=== PATIENT | male | born 1975 | race Caucasian/White ===

== ENCOUNTER 2017-11-13 08:40 | Outpatient (CLI) | payer BC ==
--- NOTE | 2017-11-13 09:10 | RAD ---
CHEST TWO VIEWS: Comparison: None. History: Chest pain. FINDINGS: Lungs are clear with no large effusion. Cardiomediastinal silhouette and mediastinal contours are wit hin normal limits. IMPRESSION: No acute intrathoracic abnormality. POS: [facility]
== END 2017-11-13 08:41 | disposition home or self-care (01) ==
LOC: RAD-FRANK 08:40
PROVIDERS: ATTEND Nurse Practitioner Family
DX: R07.9 Chest pain, unspecified (principal)
CPT/HCPCS: 71046